=== PATIENT | male | born 1990 | race Caucasian/White ===

== ENCOUNTER 2020-07-06 19:56 | Emergency (ER) | payer MEDICAID, SELFPAY ==
[2020-07-06 21:29] VITALS: BP 121/57; PULSE 67; RESP 18; TEMP 36.9; O2SAT 99; BMI 20.2
[2020-07-06] MEDS: Lidocaine HCl 1 % MPF 5 ML VIAL INFILTRATI (22:58)
--- NOTE | 2020-07-06 23:10 | ED_ITS ---
HPI - Animal Bite General Chief Complaint: Animal Bite Stated Complaint: Tick Bite Time Seen by Provider: 07/06/20 22:39 Source: patient Mode of arrival: ambulatory History of Present Illness HPI narrative: 29-year-old male with a tick at the right lateral thigh on Monday, attempted removal, does not know if tick was engorged but suspected to have gotten it from his friend's backyard on Monday. He now presents with retained tick parts. Related Data Allergies Allergy/AdvReac Type Severity Reaction Status Date / Time No Known Allergies Allergy Verified 07/06/20 21:28 Review of Systems Review of Systems: Pertinent positives and negatives as stated in HPI 10 point review of systems otherwise negative. [facility] Past Medical History Source: nursing notes reviewed Medical History Leukemia Social History Social History Alcohol intake: unknown Smoking Status: Unknown if ever smoked Use of substances other than those prescribed or required for medical reasons: Unknown Advance Directives: No Advance Directives Information Provided: Yes Physical Exam Vital Signs: Vital Signs: Last Vital Signs Temp 98.5 F 07/06/20 21:29 Pulse 67 07/06/20 21:29 Resp 18 07/06/20 21:29 BP 121/57 L 07/06/20 21:29 Pulse Ox 99 07/06/20 21:29 Body Mass Index 20.2 VITAL SIGNS: Reviewed. GENERAL: Well developed, well nourished, in no acute distress. HEAD: Normocephalic/atraumatic OROPHARYNX: no oral lesions noted, posterior pharynx clear NECK: Supple, no adenopathy LUNGS: Normal breath sounds. SpO2<99> CARDIOVASCULAR: Regular rate and rhythm without noted murmurs ABDOMEN: Soft, non-tender, non-distended with bowel sounds. RIGHT LATERAL THIGH: Retained tick parts with localized surrounding erythema NEUROLOGIC: Alert and oriented x 4. Course Course Course Narrative: 29-year-old male with retained tick parts to the right lateral thigh, all parts were successfully removed on direct visualization after application of lidocaine. Patient was also empirically treated with 200 mg of doxycycline. He was then discharged in stable condition with instructions to follow-up with his primary care provider for re-evaluation. Procedures Foreign Body Removal Time Out Performed: no Site: right and lower extremity Description of foreign body: insect (Tick parts) Sedation/Analgesia: other (Lidocaine) Technique: manual removal Confirmed by:: direct visualization Complications: none Post-procedure exam: awake, alert Discharge Plan Discharge Clinical Impression: Tick bite, Retained tick parts of thigh Patient Disposition: Home, Self-Care Instructions: Tick Bite (ED) Additional Instructions: Do not hesitate to return to the emergency department should you experience any acute worsening of your symptoms. Please follow-up with your primary care provider for re-evaluation in 2-3 days. Referrals: Physician,None [Primary Care Provider] - 2 days
== END 2020-07-06 23:20 | disposition home or self-care (01) ==
PROVIDERS: Emergency Provider Student in an Organized Health Care Education/Training Program
DX: S70.361A Insect bite (nonvenomous), right thigh, initial encounter (principal); W57.XXXA Bitten or stung by nonvenomous insect and other nonvenomous arthropods, initial encounter; Y93.89 Activity, other specified; Y92.017 Garden or yard in single-family (private) house as the place of occurrence of the external cause; Y99.8 Other external cause status
CPT/HCPCS: 99284